=== PATIENT | female | born 1975 | race Caucasian/White ===

== ENCOUNTER 2022-05-31 21:30 | Emergency (ER) | payer OTHER, SELFPAY ==
[2022-05-31 21:40] VITALS: BP 157/83; PULSE 66; RESP 16; TEMP 36.4; O2SAT 100; BMI 23.4
--- OUTSIDE RECORDS SUMMARY | 2022-05-31 22:41 | XMS_ITS | Clinical Summary ---
:1975 Author Organization [facility] [place] [address] Care Team Providers Name Role Phone Anamaria Aguirre Primary Care Provider Allergies Active Allergy Reactions Severity Noted Date Comments Penicillins Rash 10/25/2007 Medications Medication Sig Dispensed Refills Start Date End Date Status sertraline (ZOLOFT) Take 1 Tablet (100 90 Tablet 3 03/27/2022 Active 100 mg mg) by mouth once tabletIndications: daily. Anxiety disorder, unspecified type levonorgestrel Inject 1 Device 1 Each 0 03/27/2022 Active intrauterine device intrauterine one (Mirena) 20 mcg/24 time. Placed hours (7 yrs) 52 mg 02/09/18 IUD SUMAtriptan (IMITREX) Inject 0.5 mL (6 6 Each 3 03/27/2022 Active 6 mg/0.5 mL mg) subcutaneous subcutaneous pen every 2 hours if injectorIndications: needed for Migraine without aura Migraine. Give at and without status minimum 2hrs migrainosus, not apart. Max Dose: intractable 12mg per 24hrs. SUMAtriptan (IMITREX) Take 1-2 tablets 36 Tablet 5 03/27/2022 Active 50 mg by mouth every 2 tabletIndications: hours if needed Migraine without aura for migraine. max and without status dose: 200mg per 24 migrainosus, not hours. intractable polyethylene Take 4,000 mL by 4000 mL 0 07/28/2022 2 Active glycol-electrolyte mouth one time for (GOLYTELY) 1 dose. Drink 3 236-22.74-6.74 -5.86 liters the day gram before colonoscopy suspensionIndications and 1 liter 6 : Encounter for hours before screening colonoscopy colonoscopy appointment Active Problems Problem Noted Date Hyperlipidemia 03/01/2021 Migraine without aura and without status migrainosus, not intractable 12/17/2016 Tension headache 08/08/2014 Anxiety disorder 07/05/2013 Resolved Problems Problem Noted Date Resolved Date PCOS (polycystic ovarian syndrome) 05/31/200908/08 Other acne 05/31/2009 01/14/2019 Encounters Date Type Specialty Care Team Description 04/02/2022 Ancillary Procedure 04/02/2022 Travel 03/27/2022 Office Visit Anamaria Aguirre Physica l (Annual exam no PA pap) 03/27/2022 Telephone Manny Somers Appointment MD Daniel 03/27/2022 Travel from Last 3 Months Immunizations Name Administration Dates Next Due Influenza A (H1N1), Inactivated (Age 1106/21/2009 >=3 Years) Influenza, IIV3 (Age >=3 years) 05/19/2013 Influenza, IIV4 05/21/2021, 05/27/2019, 05/07/2016, 05/17/2015 Influenza, IIV4 (=>6mos) MDV 05/22/2020, 05/27/2017 Influenza,LAIV4 Live Intranasal 05/18/2014, 05/19/2013, 04/18 (Flumist) Tdap 01/14/2019, 05/31/2009 Family History Medical History Relation Name Comments Diabetes Father Heart Disease Father aneurysm in his heart; just watching it, stable in size Hyperlipidemia Father Hypertension Father Cancer Maternal Grandmother pancreatic cancer, at 76 Diabetes Maternal Grandmother onset age 7 5 Other Maternal Grandmother sarcoidosis Hyperlipidemia Mother Hypertension Mother Other Mother fibromyalgia/per ipheral neuropathy, unknown cause/hi stoplasmosis Heart Disease Paternal Grandfather [place] () age 62 Cancer-breast No Family History Relation Name Status Comments Father Alive Maternal Grandmother Mother Alive Paternal Grandfather Social History Tobacco Use Types Packs/Day Years Used Date Never Smoker Smokeless Tobacco: Never Used Tobacco Cessation: Counseling Given: Yes Alcohol Use Standard Drinks/Week Comments Yes 0 (1 standard drink = 0.6 oz pure alcoho l) rarely Alcohol Habits Answer Date Recorded How often do you have a drink containing alcohol? 2-4 times a month 05/03/2019 How many drinks containing alcohol do you have on a 1 or 2 05/03/2019 typical day when you are drinking? How often do you have six or more drinks on one Never 05/03/2019 occasion? Comment: rarely 05/31/2009 Sex Assigned at Date Recorded Not on file Obstetrics History Last Filed Vital Signs Vital Sign Reading Time Taken Comments Blood Pressure 116/72 03/27/2022 3:46 PM CDT Pulse 73 03/27/2022 3:46 PM CDT Temperature 37.1 ??C (98.7 ??F) 03/26/2020 11:38 AM CDT Respiratory Rate 20 03/18/2021 3:37 PM CDT Oxygen Saturation 99% 03/27/2022 3:46 PM CDT Inhaled Oxygen Concentration - - Weight 68.9 kg (152 lb) 03/27/2022 3:46 PM CDT Height 169.2 cm (5' 6.61) 03/27/2022 3:46 PM CDT Body Mass Index 24.08 03/27/2022 3:46 PM CDT Plan of Treatment Upcoming Encounters Date Type Specialty Care Team Description 06/12/2022 Office Visit Justin Sullivan MD [address] [place] [address] (Wo rk) 08/08/2022 Procedure Only Manny Somers MD [address] [place] [address] (Wo rk) Health Maintenance Due Date Last Done Comments Colonoscopy through age 75 12/02/2019 COVID-19 vaccine series (4 - 09/03/2021 07/09/2021, 021, Booster for Moderna series) 09/26/2020 Influenza for age 9-49 04/17/2022 05/21/2021, 05/22/2020, 05/27/2019, Additional history exists BMI (ht and wt on same day) for 03/27/2023 03/27/2022, 02/14, age 18+ 03/26/2020, Additional history exists Depression screening for age 12+ 03/27/2023 03/27/2022, 06/2022, 03/01/2021, Additional history exists Mammogram for age 45-75 04/02/2023 04/02/2022, 03/08/2021, 02/20/2020, Additional history exists Pap test for age 21-65 02/14/2025 02/15/2020, 02/15/2020, 12/17/2016, Additional history exists Lipids for age 45-75 03/27/2027 03/27/2022, 03/01/2021, 02/15/2020, Additional history exists Tetanus booster 01/14/2029 01/14/2019, 05/31/2009 Hepatitis C screening for age Completed 01/12/2018 18-79 Tdap Completed 01/14/2019, 05/31/2009 Procedures Procedure Name Priority Date/Time Associated Diagnosis Comme nts XR MAMMO WES Routine 04/02/2022 9:17 AM Visit for screening R esults for this BILAT SCREEN CDT mammogram procedure are i n the results section. BASIC METABOLIC Routine 03/27/2022 4:28 PM Migraine without au ra Results for this PANEL CDT and without status procedure are in migrainosus, not the results intractable section. LIPID PANEL W Routine 03/27/2022 4:28 PM Hyperlipidemia, Resul ts for this REFLEX MEASURED CDT unspecified procedure ar e in LDL hyperlipidemia type the resu lts section. from Last 3 Months Results XR MAMMO WES BILAT SCREEN (04/02/2022 9:17 AM CDT) Anatomical Region Laterality Modality BREASTS, Breast Left, Breast Right Bilateral Mammo graphy Specimen (Source) Anatomical Location Collection Method / Collectio n Time Received Time / Laterality Volume Impressions 04/02/2022 2:37 PM CDT ??There is no radiographic evidence for malignancy. ??Recommend annual mammograms. MAMMOGRAM ASSESSMENT: ??ACR 1 Negative PATIENTS: You will also receive a letter with your examination results in an easy to read format. ??If you have qu estions about your results, please contact your referring provider. Narrative 04/02/2022 2:37 PM CDT For Patients: As a result of the Century Cures Act, medical imaging exams and procedure reports are released immediately into your electronic medical record. You may view this report before your referring provider. If you have questions, please contact [facility] care provider. XR MAMMO WES BILAT SCREEN [[id number]] CLINICAL HISTORY: ??This is an asymptoma tic 46 y.o. patient. INDICATION FOR EXAM: Mammogram Screening . TECHNIQUE: CC & MLO views were obtained. ??This study was evaluated with the assistance of Computer-Aided Detecti on. Breast Tomosynthesis was used in interpretation. COMPARISON FILM: Yes 03/08/21 [facility] 02/20/20 [facility] FINDINGS: ??The breasts are heterogeneou sly dense, which may obscure small masses. There are no dominant masses, valverde spicious micro calcifications or areas of architectural distortion. Anamaria CHAMBERS MAMMO (ABNORMAL) LIPID PANEL W REFLEX MEASURED LDL (03/27/2022 4:28 PM CDT) [facility] Method Time Signature CHOLESTEROL,TOTAL 276 (H) 100 - 199 03/28/2022 [facility] mg/dL 3:59 PM CDT LABORATORY-[facility]I TRAL LABORATORY TRIGLYCERIDES 289 (H) <150 03/28/2022 [facility] mg/dL 3:59 PM CDT LABORATORY-[facility] TRAL LABORATORY HDL CHOLESTEROL 59 >40 mg/dL 03/28/2022 [facility] 3:59 PM CDT LABORATORY-[facility] TRAL LABORATORY NON-HDL 217 (H) <145 03/28/2022 [facility] CHOLESTEROL mg/dl 3:59 PM CDT LABORATORY-[facility] TRAL LABORATORY CHOL/HDL RATIO 4.68 (H) <4.50 03/28/2022 [facility] 3:59 PM CDT LABORATORY-[facility] TRAL LABORATORY LDL CHOLESTEROL 159 (H) <=130 03/28/2022 [facility] mg/dL 3:59 PM CDT LABORATORY-[facility] TRAL LABORATORY VLDL CHOLESTEROL 58 (H) <=30 03/28/2022 [facility] mg/dL 3:59 PM CDT LABORATORY-[facility] TRAL LABORATORY PROVIDER ORDERED RANDOM 03/28/2022 [facility] STATUS 3:59 PM CDT LABORATORY-P[facility]AVI TRAL LABORATORY Specimen Anatomical Collection Method / Collection Time Recei evert Time (Source) Location / Volume Laterality Blood BLOOD SPECIMEN / Venipuncture / 03/27/2022 4:28 2021 4:30 Unknown Unknown PM CDT PM CDT Anamaria CHAMBERS CHEMISTRY Performing Organization Address City/State/ZIP Code Phon e Number [facility] [address] [place] [address] LABORATORY-CENTRAL 2000 LABORATORY BASIC METABOLIC PANEL (03/27/2022 4:28 PM CDT) P athologist Signature SODIUM 139 135 - 145 03/28/2022 [facility] mmol/L 3:57 PM CDT LABORATORY-CENT [facility] LABORATORY POTASSIUM 4.1 3.5 - 5.0 03/28/2022 [facility] mmol/L 3:57 PM CDT LABORATORY-CENT RAL LABORATORY CHLORIDE 103 98 - 110 03/28/2022 [facility] mmol/L 3:57 PM CDT LABORATORY-CENT [facility] LABORATORY CO2,TOTAL 24 21 - 31 03/28/2022 [facility] mmol/L 3:57 PM CDT LABORATORY-CENT RAL LABORATORY ANION GAP 12 5 - 18 03/28/2022 [facility] 3:57 PM CDT LAB[facility]AT[facility]-CENT RAL LABORATORY GLUCOSE 88 65 - 100 03/28/2022 [facility] mg/dL 3:57 PM CDT LABORATORY-CENT RAL LABORATORY CALCIUM 9.7 8.5 - 10.5 03/28/2022 [facility] mg/dL 3:57 PM CDT LABORATORY-CENT RAL LABORATORY BUN 8 8 - 25 03/28/2022 [facility] mg/dL 3:57 PM CDT LABORATORY-CENT [facility] LABORATORY CREATININE 0.71 0.57 - 03/28/2022 [facility] 1.11 mg/dL 3:57 PM CDT LABORATORY-CENT RAL LABORATORY BUN/CREAT RATIO 11 10 - 20 03/28/2022 [facility] 3:57 PM CDT LAB[facility]ATORY-CENT [facility] LABORATORY eGFR >90 >90 03/28/2022 [facility] mL/min/1.7 3:57 PM CDT LABORATORY-CENT 3m2 RAL LABORATORY Comment: As of 2021, eGFR is calcu lated by the CKD-EPI creatinine equation without race adjustment. eGFR can be inf luenced by muscle mass, exercise, and diet. The reported eGFR is an estimation only and is only applicable if the renal function is stable. Specimen Anatomical Collection Method / Collection Time Recei evert Time (Source) Location / Volume Laterality Blood BLOOD SPECIMEN / Venipuncture / 03/27/2022 4:28 2021 4:30 Unknown Unknown PM CDT PM CDT Anamaria CHAMBERS CHEMISTRY Performing Organization Address City/State/ZIP Code Phon e Number [facility] [address] [place] [address] LABORATORY-CENTRAL 2000 LABORATORY from Last 3 Months Insurance Payer Benefit Plan / Subscriber ID Effective Dates Phone Addre ss Type Group MEDICA MEDICA CHOICE [id number] 2019-Present [address] [address] [place] [address] Care Teams Frame Aligner Relationship Specialty Start Date End Date Anamaria Aguirre PA PCP - General Family Practice 07/05/13 [address] [place], [place] [phone]
--- OUTSIDE RECORDS SUMMARY | 2022-05-31 22:41 | XMS_ITS | Encounter Summary ---
:1975 Author Organization [facility] Address [address] [place] [address] Care Team Providers Name Role Phone Unavailable Primary Care Provider Unavailable Encounter Details Date Type Department Care Team Description 04/11/2005 Results [facility] Ori Cowart MD Hospital Results OBGYN SPECIALIS TS [address] [place], [place] [phone] (Wo rk) Social History Tobacco Use Types Packs/Day Years Used Date Smoking Tobacco: Never Assessed Sex Assigned at Date Recorded Female 10/26/2019 10:01 AM CDT documented as of this encounter Plan of Treatment Not on filedocumented as of this encounter Procedures Procedure Name Priority Date/Time Associated Comments Diagnosis HC HYSTEROSALPINGOGRAM Routine 04/11/2005 12:41 R esults for this PM CDT procedure are i n the results section. documented in this encounter Results X-RAY HYSTEROSALPINGOGRAM (04/11/2005 12:41 PM CDT) Anatomical Region Laterality Modality Other Specimen (Source) Anatomical Collection Method Collection Time Re ceived Time Location / / Volume Laterality 04/11/2005 12:41 PM CDT Impressions 04/11/2005 1:33 PM CDT HYSTEROSALPINGOGRAM - 04/11/2005 ?? HISTORY: Infertility workup. ? FINDINGS: Fluoroscopic assistance was pr ovided to Dr. Moon for the hysterosalpingogram. The CATTLE FARMER cannulat ed the patient's cervix and follow up films are made after injection of water-soluble contrast into the uterine cavity. The endometrial cavity appears normal in contour without evidence of filling defe cts with the exception of a single small air bubble within the lower uterine segment. The fallopian tubes bilaterally appear lissa l and there is free spillage from the tubes bilaterally confirming pa tency. A total of 0.3 minutes fluorotime was utilized for this examina tion. ?? IMPRESSION: ?? No evidence for tubal obstruction. Lissa l appearing uterine cavity. Jannette Moon MD SPECIAL IMAGING STUDIES documented in this encounter Visit Diagnoses Not on filedocumented in this encounter
--- OUTSIDE RECORDS SUMMARY | 2022-05-31 22:41 | XMS_ITS | Encounter Summary ---
:1975 Author Organization [facility] Address [address] [place] [address] Care Team Providers Name Role Phone Unavailable Primary Care Provider Unavailable Encounter Details Date Type Department Care Team Description 04/22/2007 Admission H&P Kimberley Powell MD (Chemist Pharmaceutical) MOBILE ARCHITECT SPECIALIS TS [address] [facility] [address] [place], [place] [phone] (Wo rk) Social History Tobacco Use Types Packs/Day Years Used Date Smoking Tobacco: Never Assessed Sex Assigned at Date Recorded Female 10/26/2019 10:01 AM CDT documented as of this encounter Progress Notes Kimberley Powell - 05/07/2007 9:29 AM CDT FINAL HISTORY: 31-year-old female, 3, para 2 who has been found to have a missed AB on an ultrasound. She is being brought in for suction D&C. PAST OBSTETRICAL HISTORY: x2. PAST SURGICAL HISTORY: None. PAST MEDICAL HISTORY: Negative. ALLERGIES: Penicillin. REVIEW OF SYSTEMS: Negative. PHYSICAL EXAMINATION: VITAL SIGNS: Stable. NECK: Supple, no masses. BACK: Normal spinal curvature, no CVA tenderness. HEART: S1, S2, no S3, S4, no murmur, regular rhythm. CHEST: Clear to auscultation. ABDOMEN: Soft, nontender, no hepatosplenomegaly. PELVIC: Exam deferred to surgery. IMPRESSION: First trimester intrauterine demise. PLAN: Suction D&C. Risks and complications discussed. The patient will receive RhoGAM in the hospital. Electronically signed on 05/07/2007 09:27 by KIMBERLEY POWELL MD MT: [id number] Name: AARON MCDONALD Account: [id number] : 1975 Admitted: [id number] Document: [id number] documented in this encounter Plan of Treatment Not on filedocumented as of this encounter Visit Diagnoses Not on filedocumented in this encounter
--- OUTSIDE RECORDS SUMMARY | 2022-05-31 22:41 | XMS_ITS | Encounter Summary ---
:1975 Author Organization [place] Address [address] [place] [address] Care Team Providers Name Role Phone Unavailable Primary Care Provider Unavailable Encounter Details Date Type Department Care Team Description 04/26/2007 Operative Report Kimberley Powell MD (Blasting Gang Miner) KERSEY DEPARTMENT SUPERVISOR SPECIALIS TS [address] [facility] [address] [place], [place] [address] (Wo rk) Social History Tobacco Use Types Packs/Day Years Used Date Smoking Tobacco: Never Assessed Sex Assigned at Date Recorded Female 10/26/2019 10:01 AM CDT documented as of this encounter Progress Notes Kimberley Powell - 05/07/2007 9:31 AM CDT FINAL PREOPERATIVE DIAGNOSIS: Missed . POSTOPERATIVE DIAGNOSIS: Missed . PROCEDURE: Suction dilatation and curettage. DESCRIPTION OF PROCEDURE: The patient was placed under satisfactory general anesthesia and prepped and draped in the dorsal lithotomy position. Examination demonstrated an 8 week size anterior uterus with no adnexal masses palpated. The bladder was emptied of urine and a tenaculum was placed on the cervix. The uterus was sounded to 10 cm. The cervix was then easily progressively dilated to 9 mm. Thesuction curette was inserted into the uterine cavity and a substantial amount of blood clot and placental type tissue was withdrawn from the uterine cavity on several passes. Light gentle sharp curettage was also performed to assure that the uterus was empty. The uterus clamped down nicely. Tenaculum was removed, hemostasis obtained. She tolerated the procedure well, left Operating Room in good condition. Blood loss was less than 10 cc. Electronically signed on 05/07/2007 09:30 by KIMBERLEY POWELL MD MT: [id number] Name: AARON MCDONALD MRN: [id number] Account: [id number] : 1975 Procedure Date: 04/26/2007 Document: [id number] documented in this encounter Plan of Treatment Not on filedocumented as of this encounter Visit Diagnoses Not on filedocumented in this encounter
--- OUTSIDE RECORDS SUMMARY | 2022-05-31 22:41 | XMS_ITS | Encounter Summary ---
:1975 Author Organization [facility] Address [address] [place] [address] Care Team Providers Name Role Phone Unavailable Primary Care Provider Unavailable Encounter Details Date Type Department Care Team Description 05/10/2006 Historic Results INTERFACED REPORT Steven Fermin M D DIETITIAN CONSULTANT S [address] [facility] [address] [place], [place] [address] (Wo rk) Social History Tobacco Use Types Packs/Day Years Used Date Smoking Tobacco: Never Assessed Sex Assigned at Date Recorded Female 10/26/2019 10:01 AM CDT documented as of this encounter Plan of Treatment Not on filedocumented as of this encounter Procedures Procedure Name Priority Date/Time Associated Diagnosis Comme nts RH NEGATIVE IMMUNE Routine 05/10/2006 8:45 AM Res ults for this GLOBULIN STUDY CDT procedure are in the results section. RHOGAM ORDER Routine 05/10/2006 6:32 AM Results f or this CDT procedure are i n the results section. documented in this encounter Results Rh negative immune globulin study (05/10/2006 8:45 AM CDT) [facility] 360Guanxi Method Time Signature Blood Bank Not MISYS Comment suitable, baby Rh negative Specimen Anatomical Collection Method Collection Time Receive d Time (Source) Location / / Volume Laterality 05/10/2006 8:45 AM 6 9:03 CDT AM CDT Steven Fermin MD LAB - BLOOD BANK PRODUCT ORD ER Performing Organization Address City/State/ZIP Code Phon e Number [facility] Rhogam Order (05/10/2006 6:32 AM CDT) [facility] gist Method Time Signature Rhogam Order Order MISYS received Comment: See Rhogam Study/Suitability Specimen Anatomical Collection Method Collection Time Receive d Time (Source) Location / / Volume Laterality 05/10/2006 6:32 AM 6:32 CDT AM CDT Steven Fermin MD LAB - BLOOD BANK PRODUCT ORD ER Performing Organization Address City/State/ZIP Code Phon e Number [facility] documented in this encounter Visit Diagnoses Not on filedocumented in this encounter
--- OUTSIDE RECORDS SUMMARY | 2022-05-31 22:41 | XMS_ITS | Encounter Summary ---
:1975 Author Organization [facility] Address [address] [place] [address] Care Team Providers Name Role Phone System, Provider Not In Primary Care Provider Unavailable Xenia Rae APRN N[employer]SE SCHOOL Unavailable Reason for Visit Reason Comments Medication Refill Encounter Details Date Type Department Care Team Description 12/02/2020 Refill M [facility] Neurology Xenia Rae Medication Refill [address] [facility] STEVEN Cummings [employer] [address] [place] [phone] [id number] [phone] [place] [address] (Wo rk) Social History Tobacco Use Types Packs/Day Years Used Date Smoking Tobacco: Never Assessed Sex Assigned at Date Recorded Female 10/26/2019 10:01 AM CDT documented as of this encounter Miscellaneous Notes Telephone Encounter - Lilly Ventura CMA - 12/03/2020 8:03 AM CDT Rx Authorization: ??? Requested Medication/ Dose SUMAtriptan (IMITREX) 100 MG tablet ??? Date last refill ordered: 10/26/19 ??? Quantity ordered: 12 Tablets ??? # refills: 6 ??? Date of last clinic visit with ordering provider: 12/13/19 ??? Date of next clinic visit with ordering provider: ??? All pertinent protocol data (lab date/result): ??? Include pertinent information from patients message: documented in this encounter Plan of Treatment Not on filedocumented as of this encounter Visit Diagnoses Diagnosis Intractable migraine without aura and wi thout status migrainosus Migraine without aura, with intractable migraine, so stated, without mention of status migrainosus documented in this encounter Care Teams Container Packer Operator Relationship Specialty Start Date End Date System, Provider Not In PCP - General Clinic 09/12/19 Xenia Rae Nurse Practitioner Nurse Practitioner 09/12/19 STEVEN Cummings [address] [id number] [place] [address] documented as of this encounter
--- OUTSIDE RECORDS SUMMARY | 2022-05-31 22:41 | XMS_ITS | Encounter Summary ---
:1975 Author Organization [facility] Address [address] [place] [address] Care Team Providers Name Role Phone Unavailable Primary Care Provider Unavailable Encounter Details Date Type Department Care Team Description 04/12/2005 Operative Report Bacilio Callahan MD (Fruit Dryer) NETWORK ENGINEER ADMINISTRATOR S [address] [facility] [address] [place], [place] [phone] (Wo rk) Social History Tobacco Use Types Packs/Day Years Used Date Smoking Tobacco: Never Assessed Sex Assigned at Date Recorded Female 10/26/2019 10:01 AM CDT documented as of this encounter Progress Notes Bacilio Callahan - 04/12/2005 11:59 PM CDT : 73 1st ASS'T: 2nd ASS'T: PRE-OPERATIVE DIAGNOSIS: Secondary infertility. POST-OPERATIVE DIAGNOSIS: Secondary infertility. OPERATION: Hysterosalpingogram. COMPLICATIONS: None. PROCEDURE: Aaron Mcdonald states that she just got over her menses and has not had intercourse since then. She was given the risks and benefits and had been taking the prophylactic antibiotics. A speculum was placed in the vagina. The cervix was cleansed with Betadine solution. The anterior lip of the cervix was grasped with tenaculum. The uterine cannula was placed into the cervical canal. Conray, approximately 5 ml, was injected. Fluoroscopy was performed at the same time by the radiologist. Normal uterine cavity was noted with bilateral fill and spill of the tubes. She tolerated the procedure, was given precautions, and will return next week for follicular ultrasound and intrauterine examination procedure. [id number] BACILIO CALLAHAN MD MT: Document: [id number] [place], [place] Name: MR#: AARON MCDONALD [id number] OPERATIVE REPORT Page 2 of 1 LCN: DARIO DSC: 04/11/2005 [place], [place] Name: MR#: AARON MCDONALD -[id number] : Procedure Date: Account #: 1975 [id number] Doctor: BACILIO CALLAHAN MD OPERATIVE REPORT Page 1 of 1 documented in this encounter Plan of Treatment Not on filedocumented as of this encounter Visit Diagnoses Not on filedocumented in this encounter
--- OUTSIDE RECORDS SUMMARY | 2022-05-31 22:41 | XMS_ITS | Encounter Summary ---
:1975 Author Organization [facility] Address [address] [place] [id number] Care Team Providers Name Role Phone System, Provider Not In Primary Care Provider Unavailable Xenia Rae APRN SPLITTER HAND Unavailable Reason for Visit Reason Onset Date Comments *-*INCOMING RECORDS*-* 09/14/2019 Appointment 2019 Encounter Details Date Type Department Care Team Description 09/14/2019 PRE VISIT [facility] Eileen Ford *-*INCOMING RECORDS*-* [facility] Shabana Parnell MD (Appointment 3rd Floor [address] [facility] 10/26/2019) [place] [phone] (Wo rk) Social History Tobacco Use Types Packs/Day Years Used Date Smoking Tobacco: Never Assessed Sex Assigned at Date Recorded Female 10/26/2019 10:01 AM CDT documented as of this encounter Miscellaneous Notes Telephone Encounter - El Diaz MA - 09/14/2019 7:40 AM CST FUTURE VISIT INFORMATION FUTURE VISIT INFORMATION: ?? Date: 10/26/2019 ?? Time: 1230pm ?? [place] [facility] [place]: ?? Referring provider: Self ?? Referring providers clinic: ?? Reason for visit/diagnosis Headaches RECORDS REQUESTED FROM: Clinic name Comments Records Status Imaging Status [facility] Various dates Care EVerywhere N/A ONER documented in this encounter Plan of Treatment Not on filedocumented as of this encounter Visit Diagnoses Not on filedocumented in this encounter Care Teams [employer] Relationship Specialty Start Date End Date System, Provider Not In PCP - General Clinic 09/12/19 Xenia Rae Nurse Practitioner Nurse Practitioner 09/12/19 STEVEN Cummings SPLITTER HAND [address] [facility] [id number] [place] [address] documented as of this encounter
--- OUTSIDE RECORDS SUMMARY | 2022-05-31 22:41 | XMS_ITS | Encounter Summary ---
:1975 Author Organization [facility] Address [address] [place] [id number] Care Team Providers Name Role Phone System, Provider Not In Primary Care Provider Unavailable Xenia Rae APRN PAEDODONTIST Unavailable Encounter Details Date Type Department Care Team Description 10/26/2019 Travel Social History Tobacco Use Types Packs/Day Years Used Date Smoking Tobacco: Never Assessed Sex Assigned at Date Recorded Female 10/26/2019 10:01 AM CDT documented as of this encounter Plan of Treatment Not on filedocumented as of this encounter Visit Diagnoses Not on filedocumented in this encounter Care Teams Public Relations Senior Associate Relationship Specialty Start Date End Date System, Provider Not In PCP - General Clinic 09/12/19 Xenia Rae Nurse Practitioner Nurse Practitioner 09/12/19 STEVEN Cummings PAEDODONTIST [address] [facility] [id number] [place] [address] documented as of this encounter
--- OUTSIDE RECORDS SUMMARY | 2022-05-31 22:41 | XMS_ITS | Encounter Summary ---
:1975 Author Organization [facility] Address [address] [place] [id number] Care Team Providers Name Role Phone System, Provider Not In Primary Care Provider Unavailable Xenia Rae APRN MANAGER TEST Unavailable Reason for Visit Reason Comments Consult For UMP NEW HEADACHE Encounter Details Date Type Department Care Team Description 10/26/2019 Office Visit [facility] Neurology Xenia Rae Intractable migraine [address] [facility] [address] [place], without aura and 3rd Floor SOCIAL SERVICE COORDINATOR MANAGER TEST without status [place], [place] [address] migraino june (Primary [id number] Dx) [phone] [place] [address] Social History Tobacco Use Types Packs/Day Years Used Date Smoking Tobacco: Never Assessed Sex Assigned at Date Recorded Female 10/26/2019 10:01 AM CDT documented as of this encounter Last Filed Vital Signs Vital Sign Reading Time Taken Comments Blood Pressure 124/78 10/26/2019 12:17 PM CDT Pulse 64 10/26/2019 12:17 PM CDT Temperature - - Respiratory Rate 16 10/26/2019 12:17 PM CDT Oxygen Saturation 100% 10/26/2019 12:17 PM CDT Inhaled Oxygen Concentration - - Weight 67.1 kg (148 lb) 10/26/2019 12:17 PM CDT Height - - Body Mass Index - - documented in this encounter Patient Instructions Patient InstructionsXenia Rae, STEVEN MANAGER TEST - 10/26/2019 12:30 PM CDT Images from the original note were not included. Plan: Headache log for frequency and severity and acute medications use Stay hydrated Acute migraine headache treatment -either try sumatriptan 100 mg at headache onset and may repeat in2 hours as needed. Max 200 mg in 24 hours. May take sumatriptan alone or with naproxen. Naproxen 2 tablets (440 mg) every 12 hours as needed and tolerated. May try sumatriptan nasal as needed and may work faster than sumatriptan oral. Sumatriptan nasal spray maximum two doses in 24 hours. If you use sumatriptan nasal and oral at the same day than use 50% less of the recommended oral sumatriptan (max 100 mg in 24 hours vs 200 mg in 24 hours). May try prochlorperazine as needed for nausea and vomiting-may cause feeling of anxiety and drowsiness. We could try ondansetron for nausea as needed -could be taken at work or home due to low drowsiness effect. Headache migraine prevention-a trial of topiramate 25 mg at bedtime for one week, then 50 mg at bedtime Migraine headache prevention-a trial of topiramate 25 mg at bedtime for one week, then 50 mg at bedtime for one week. Side effects- stay hydrated and drink at least 10+glasses of water to decrease risk of kidney stones, may cause tingling in the hands and feet, taste changes, glaucoma, nausea, weight stable or loss, mood changes. Vitamin B2 (riboflvin) 200 mg daily OTC Follow up in 6-8 weeks or sooner if needed Patient Education Ondansetron oral dissolving tablet Brand Name: Julio CONRAD What is this medicine? ONDANSETRON (on SARAH se brenda) is used to treat nausea and vomiting caused by chemotherapy. It is alsoused to prevent or treat nausea and vomiting after surgery. How should I use this medicine? These tablets are made to dissolve in the mouth. Do not try to push the tablet through the foil backing. With dry hands, peel away the foil backing and gently remove the tablet. Place the tablet in themouth and allow it to dissolve, then swallow. While you may take these tablets with water, it is notnecessary to do so. Talk to your ultrasound supervisor regarding the use of this medicine in children. Special care may be needed. What side effects may I notice from receiving this medicine? Side effects that you should report to your doctor or health rn patient care as soon as possible: ?? allergic reactions like skin rash, itching or hives, swelling of the face, lips, or tongue ?? breathing problems ?? confusion ?? dizziness ?? fast or irregular heartbeat ?? feeling faint or lightheaded, falls ?? fever and chills ?? loss of balance or coordination ?? seizures ?? sweating ?? swelling of the hands and feet ?? tightness in the chest ?? tremors ?? unusually weak or tired Side effects that usually do not require medical attention (report to your doctor or health rn patient care if they continue or are bothersome): ?? constipation or diarrhea ?? headache What may interact with this medicine? Do not take this medicine with any of the following medications: ?? apomorphine ?? certain medicines for fungal infections like fluconazole, itraconazole, ketoconazole, posaconazole, voriconazole ?? cisapride ?? dofetilide ?? dronedarone ?? pimozide ?? thioridazine ?? ziprasidone This medicine may also interact with the following medications: ?? carbamazepine ?? certain medicines for depression, anxiety, or psychotic disturbances ?? fentanyl ?? linezolid ?? MAOIs like Carbex, Eldepryl, Marplan, Nardil, and Parnate ?? methylene blue (injected into a vein) ?? other medicines that prolong the QT interval (cause an abnormal heart rhythm) ?? phenytoin ?? rifampicin ?? tramadol What if I miss a dose? If you miss a dose, take it as soon as you can. If it is almost time for your next dose, take only that dose. Do not take double or extra doses. Where should I keep my medicine? Keep out of the reach of children. Store between 2 and 30 degrees C (36 and 86 degrees F). Throw away any unused medicine after the expiration date. What should I tell my health care provider before I take this medicine? They need to know if you have any of these conditions: ?? heart disease ?? history of irregular heartbeat ?? liver disease ?? low levels of magnesium or potassium in the blood ?? an unusual or allergic reaction to ondansetron, granisetron, other medicines, foods, dyes, or preservatives ?? or trying to get ?? breast-feeding What should I watch for while using this medicine? Check with your doctor or health rn patient care as soon as you can if you have any sign of an allergic reaction. NOTE:This sheet is a summary. It may not cover all possible information. If you have questions aboutthis medicine, talk to your doctor, pharmacist, or health care provider. Copyright?? 2019 [employer] Patient Education Patient Education ?? Sumatriptan Nasal spray, solution ?? Sumatriptan Succinate Oral tablet ?? Sumatriptan Succinate Solution for injection ?? Sumatriptan Transdermal patch - iontophorectic Sumatriptan Nasal spray, solution What is this medicine? SUMATRIPTAN (albino ma TRIP bosch) is used to treat migraines with or without aura. An aura is a strange feeling or visual disturbance that warns you of an attack. It is not used to prevent migraines. This medicine may be used for other purposes; ask your health care provider or pharmacist if you have questions. What should I tell my health care provider before I take this medicine? They need to know if you have any of these conditions: ?? bowel disease or colitis ?? diabetes ?? family history of heart disease ?? fast or irregular heart beat ?? heart or blood vessel disease, angina (chest pain), or previous heart attack ?? high blood pressure ?? high cholesterol ?? history of stroke, transient ischemic attacks (TIAs or mini-strokes), or intracranial bleeding ?? kidney or liver disease ?? overweight ?? poor circulation ?? postmenopausal or surgical removal of uterus and ovaries ?? Raynaud's disease ?? seizure disorder ?? an unusual or allergic reaction to sumatriptan, other medicines, foods, dyes, or preservatives ?? or trying to get ?? breast-feeding How should I use this medicine? This medicine is for use in the nose. Follow the directions on the prescription label. This medicineis taken at the first symptoms of a migraine. It is not for everyday use. Do not take your medicine more often than directed. Talk to your ultrasound supervisor regarding the use of this medicine in children. Special care may be needed. Overdosage: If you think you have taken too much of this medicine contact a poison control center [facility] at once. NOTE: This medicine is only for you. Do not share this medicine with others. What if I miss a dose? This does not apply; this medicine is not for regular use. What may interact with this medicine? Do not take this medicine with any of the following medicines: ?? amphetamine or cocaine ?? dihydroergotamine, ergotamine, ergoloid mesylates, methysergide, or ergot- type medication - do not take within 24 hours of taking sumatriptan. ?? feverfew ?? MAOIs like Carbex, Eldepryl, Marplan, Nardil, and Parnate - do not take sumatriptan within 2 weeks of stopping MAOI therapy. ?? other migraine medicines like almotriptan, eletriptan, naratriptan, rizatriptan, zolmitriptan - do not take within 24 hours of taking sumatriptan. ?? tryptophan This medicine may also interact with the following medications: ?? lithium ?? medicines for mental depression, anxiety or mood problems ?? medicines for weight loss such as dexfenfluramine, dextroamphetamine, fenfluramine, or sibutramine ?? Horse Pasture's wort This list may not describe all possible interactions. Give your health care provider a list of all the medicines, herbs, non-prescription drugs, or dietary supplements you use. Also tell them if you smoke, drink alcohol, or use illegal drugs. Some items may interact with your medicine. What should I watch for while using this medicine? Only take this medicine for a migraine headache. Take it if you get warning symptoms or at the startof a migraine attack. It is not for regular use to prevent migraine attacks. You may get drowsy or dizzy. Do not drive, use machinery, or do anything that needs mental alertnessuntil you know how this medicine affects you. To reduce dizzy or fainting spells, do not sit or stand up quickly, especially if you are an older patient. Alcohol can increase drowsiness, dizziness and flushing. Avoid alcoholic drinks. Smoking cigarettes may increase the risk of heart-related side effects from using this medicine. If you take migraine medicines for 10 or more days a month, your migraines may get worse. Keep a diary of headache days and medicine use. Contact your healthcare professional if your migraine attacks occur more frequently. What side effects may I notice from receiving this medicine? Side effects that you should report to your doctor or health rn patient care as soon as possible: ?? allergic reactions like skin rash, itching or hives, swelling of the face, lips, or tongue ?? fast, slow, or irregular heart beat ?? hallucinations ?? increased or decreased blood pressure ?? seizures ?? severe stomach pain and cramping, bloody diarrhea ?? signs and symptoms of a blood clot such as breathing problems; changes in vision; chest pain; severe, sudden headache; pain, swelling, warmth in the leg; trouble speaking; sudden numbness or weakness of the face, arm or leg ?? tingling, pain, or numbness in the face, hands or feet Side effects that usually do not require medical attention (report to your doctor or health rn patient care if they continue or are bothersome): ?? bad taste ?? drowsiness ?? feeling warm, flushing, or redness of the face ?? headache ?? muscle cramps, pain ?? nausea, vomiting ?? unusually weak or tired This list may not describe all possible side effects. Call your doctor for medical advice about sideeffects. You may report side effects to FDA at 7-261-JRR-4627. Where should I keep my medicine? Keep out of the reach of children. Store at room temperature between 2 and 30 degrees C (36 and 86 degrees F). Throw away any unused medicine after the expiration date. NOTE:This sheet is a summary. It may not cover all possible information. If you have questions aboutthis medicine, talk to your doctor, pharmacist, or health care provider. Copyright?? 2016 [employer] Patient Education Patient Education ?? Prochlorperazine Edisylate Solution for injection ?? Prochlorperazine Maleate Oral tablet ?? Prochlorperazine Rectal suppository Prochlorperazine Maleate Oral tablet What is this medicine? PROCHLORPERAZINE (proe klor PER a kelvin) helps to control severe nausea and vomiting. This medicine is also used to treat schizophrenia. It can also help patients who experience anxiety that is not due to psychological illness. This medicine may be used for other purposes; ask your health care provider or pharmacist if you have questions. What should I tell my health care provider before I take this medicine? They need to know if you have any of these conditions: ?? blood disorders or disease ?? dementia ?? liver disease or jaundice ?? Parkinson's disease ?? uncontrollable movement disorder ?? an unusual or allergic reaction to prochlorperazine, other medicines, foods, dyes, or preservatives ?? or trying to get ?? breast-feeding How should I use this medicine? Take this medicine by mouth with a glass of water. Follow the directions on the prescription label. Take your doses at regular intervals. Do not take your medicine more often than directed. Do not stoptaking this medicine suddenly. This can cause nausea, vomiting, and dizziness. Ask your doctor or health rn patient care for advice. Talk to your ultrasound supervisor regarding the use of this medicine in children. Special care may be needed. While this drug may be prescribed for children as young as 2 years for selected conditions, precautions do apply. Overdosage: If you think you have taken too much of this medicine contact a poison control center [facility] at once. NOTE: This medicine is only for you. Do not share this medicine with others. What if I miss a dose? If you miss a dose, take it as soon as you can. If it is almost time for your next dose, take only that dose. Do not take double or extra doses. What may interact with this medicine? Do not take this medicine with any of the following medications: ?? amoxapine ?? antidepressants like citalopram, escitalopram, fluoxetine, paroxetine, and sertraline ?? deferoxamine ?? dofetilide ?? maprotiline ?? tricyclic antidepressants like amitriptyline, clomipramine, imipramine, nortiptyline and others This medicine may also interact with the following medications: ?? lithium ?? medicines for pain ?? phenytoin ?? propranolol ?? warfarin This list may not describe all possible interactions. Give your health care provider a list of all the medicines, herbs, non-prescription drugs, or dietary supplements you use. Also tell them if you smoke, drink alcohol, or use illegal drugs. Some items may interact with your medicine. What should I watch for while using this medicine? Visit your doctor or health rn patient care for regular checks on your progress. You may get drowsy or dizzy. Do not drive, use machinery, or do anything that needs mental alertnessuntil you know how this medicine affects you. Do not stand or sit up quickly, especially if you are an older patient. This reduces the risk of dizzy or fainting spells. Alcohol may interfere with the effect of this medicine. Avoid alcoholic drinks. This medicine can reduce the response of your body to heat or cold. Dress machine cage maker cold weather and stay hydrated in hot weather. If possible, avoid extreme temperatures like saunas, hot tubs, very hot or cold showers, or activities that can cause dehydration such as vigorous exercise. This medicine can make you more sensitive to the sun. Keep out of the sun. If you cannot avoid beingin the sun, wear protective clothing and use sunscreen. Do not use sun lamps or tanning beds/booths. Your mouth may get dry. Chewing sugarless gum or sucking hard candy, and drinking plenty of water may help. Contact your doctor if the problem does not go away or is severe. What side effects may I notice from receiving this medicine? Side effects that you should report to your doctor or health rn patient care as soon as possible: ?? blurred vision ?? breast enlargement in men or women ?? breast milk in women who are not breast-feeding ?? chest pain, fast or irregular heartbeat ?? confusion, restlessness ?? dark yellow or brown urine ?? difficulty breathing or swallowing ?? dizziness or fainting spells ?? drooling, shaking, movement difficulty (shuffling walk) or rigidity ?? fever, chills, sore throat ?? involuntary or uncontrollable movements of the eyes, mouth, head, arms, and legs ?? seizures ?? stomach area pain ?? unusually weak or tired ?? unusual bleeding or bruising ?? yellowing of skin or eyes Side effects that usually do not require medical attention (report to your doctor or health rn patient care if they continue or are bothersome): ?? difficulty passing urine ?? difficulty sleeping ?? headache ?? sexual dysfunction ?? skin rash, or itching This list may not describe all possible side effects. Call your doctor for medical advice about sideeffects. You may report side effects to FDA at 1-495-XLC-2594. Where should I keep my medicine? Keep out of the reach of children. Store at room temperature between 15 and 30 degrees C (59 and 86 degrees F). Protect from light. Throw away any unused medicine after the expiration date. NOTE:This sheet is a summary. It may not cover all possible information. If you have questions aboutthis medicine, talk to your doctor, pharmacist, or health care provider. Copyright?? 2016 [employer] Patient Education Topiramate tablets Brand Names: Topamax, Topiragen What is this medicine? TOPIRAMATE (toe PYRE a mate) is used to treat seizures in adults or children with epilepsy. It is also used for the prevention of migraine headaches. How should I use this medicine? Take this medicine by mouth with a glass of water. Follow the directions on the prescription label. Do not crush or chew. You may take this medicine with meals. Take your medicine at regular intervals.Do not take it more often than directed. Talk to your ultrasound supervisor regarding the use of this medicine in children. Special care may be needed. While this drug may be prescribed for children as young as 2 years of age for selected conditions, precautions do apply. What side effects may I notice from receiving this medicine? Side effects that you should report to your doctor or health rn patient care as soon as possible: ?? allergic reactions like skin rash, itching or hives, swelling of the face, lips, or tongue ?? decreased sweating and/or rise in body temperature ?? depression ?? difficulty breathing, fast or irregular breathing patterns ?? difficulty speaking ?? difficulty walking or controlling muscle movements ?? hearing impairment ?? redness, blistering, peeling or loosening of the skin, including inside the mouth ?? tingling, pain or numbness in the hands or feet ?? unusual bleeding or bruising ?? unusually weak or tired ?? worsening of mood, thoughts or actions of suicide or dying Side effects that usually do not require medical attention (report to your doctor or health rn patient care if they continue or are bothersome): ?? altered taste ?? back pain, joint or muscle aches and pains ?? diarrhea, or constipation ?? headache ?? loss of appetite ?? nausea ?? stomach upset, indigestion ?? tremors What may interact with this medicine? Do not take this medicine with any of the following medications: ?? probenecid This medicine may also interact with the following medications: ?? acetazolamide ?? alcohol ?? amitriptyline ?? aspirin and aspirin-like medicines ?? control pills ?? certain medicines for depression ?? certain medicines for seizures ?? certain medicines that treat or prevent blood clots like warfarin, enoxaparin, dalteparin, apixaban, dabigatran, and rivaroxaban ?? digoxin ?? hydrochlorothiazide ?? lithium ?? medicines for pain, sleep, or muscle relaxation ?? metformin ?? methazolamide ?? NSAIDS, medicines for pain and inflammation, like ibuprofen or naproxen ?? pioglitazone ?? risperidone What if I miss a dose? If you miss a dose, take it as soon as you can. If your next dose is to be taken in less than 6 hours, then do not take the missed dose. Take the next dose at your regular time. Do not take double or extra doses. Where should I keep my medicine? Keep out of the reach of children. Store at room temperature between 15 and 30 degrees C (59 and 86 degrees F) in a tightly closed container. Protect from moisture. Throw away any unused medicine after the expiration date. What should I tell my health care provider before I take this medicine? They need to know if you have any of these conditions: ?? bleeding disorders ?? cirrhosis of the liver or liver disease ?? diarrhea ?? glaucoma ?? kidney stones or kidney disease ?? low blood counts, like low white cell, platelet, or red cell counts ?? lung disease like asthma, obstructive pulmonary disease, emphysema ?? metabolic acidosis ?? on a ketogenic diet ?? schedule for surgery or a procedure ?? suicidal thoughts, plans, or attempt; a previous suicide attempt by you or a family member ?? an unusual or allergic reaction to topiramate, other medicines, foods, dyes, or preservatives ?? or trying to get ?? breast-feeding What should I watch for while using this medicine? Visit your doctor or health rn patient care for regular checks on your progress. Do not stop taking this medicine suddenly. This increases the risk of seizures if you are using this medicine to control epilepsy. Wear a medical identification bracelet or chain to say you have epilepsy or seizures, and carry a card that lists all your medicines. This medicine can decrease sweating and increase your body temperature. Watch for signs of sweating or fever, especially in children. Avoid extreme heat, hot baths, and saunas. Be careful about exercising, especially in hot weather. Contact your health care provider right away if you notice afever or decrease in sweating. You should drink plenty of fluids while taking this medicine. If you have had kidney stones in the past, this will help to reduce your chances of forming kidney stones. If you have stomach pain, with nausea or vomiting and yellowing of your eyes or skin, call your doctor immediately. You may get drowsy, dizzy, or have blurred vision. Do not drive, use machinery, or do anything that needs mental alertness until you know how this medicine affects you. To reduce dizziness, do not sit or stand up quickly, especially if you are an older patient. Alcohol can increase drowsiness and dizziness. Avoid alcoholic drinks. If you notice blurred vision, eye pain, or other eye problems, seek medical attention at once for aneye exam. The use of this medicine may increase the chance of suicidal thoughts or actions. Pay special attention to how you are responding while on this medicine. Any worsening of mood, or thoughts of suicide or dying should be reported to your health rn patient care right away. This medicine may increase the chance of developing metabolic acidosis. If left untreated, this can cause kidney stones, bone disease, or slowed growth in children. Symptoms include breathing fast, fatigue, loss of appetite, irregular heartbeat, or loss of consciousness. Call your doctor immediately if you experience any of these side effects. Also, tell your doctor about any surgery you plan on having while taking this medicine since this may increase your risk for metabolic acidosis. control pills may not work properly while you are taking this medicine. Talk to your doctor about using an extra method of control. Women who become while using this medicine may enroll in the [place]iepileptic Drug Registry by calling . This registry collects information about the safetyof antiepileptic drug use during . NOTE:This sheet is a summary. It may not cover all possible information. If you have questions aboutthis medicine, talk to your doctor, pharmacist, or health care provider. Copyright?? 2019 [employer] documented in this encounter Progress Notes Xenia Rae APRN CNP - 10/26/2019 12:30 PM CDT Re: Aarti Mcdonald Date of : 1975 Date of Visit:10/26/2019 OUTPATIENT NEUROLOGY VISIT NOTE Chief Complaint: headache History of Present Illness Aarti Mcdonald is a 43-year-old female [facility] a [facility] evaluation. Headache History: Onset History: Since early 20s and used to manage with Excedrin until 3 years ago started sumatriptan but since last summer. Headaches worsen since summer Current Headache Pattern: Frequency (How many headache days per month?): 3-4 times per week until August and now headaches 1-2 per week lasting for a couple hours if sumatriptan works otherwise up to 12 hours Aura: none Associated Symptoms: nausea, vomiting, light sensitivity and sound sensitivity, fatigue and denies lacrimation or rhinorhea Description of Headache Pain & Location: Almost starts on the right side and craniocervical junction and wraps around and goes to the front/over right sinuses/jaw and predominant to the right side. Pain 8/10 Do headaches interfere with or prevent usual activities or diminish your productivity at home or work? Lives work earlier or calls in Treatments Tried: Sumatriptan 50 mg and repeats within an hour Sertraline has been taking for 10 years Have you needed to utilize the Emergency Room to treat your headache symptoms? no Are Headaches worsening over time? Worsening What makes your headaches better? dark room, quiet room and sleeping headache off What makes your headaches worse or triggers your headaches? Lack of sleep, stress, travel Has IUD Alcohol occasional but does not trigger headache One cup of coffee in the morning and no soda Exercise -yoga Denies history of head or neck trauma, dizziness, vertigo, loss of consciousness, seizure, double vision, blurred vision, hearing difficulty, speech or swallowing difficulty, weakness or numbness in face, arms or legs, urinary or bowel incontinence, coordination problems or gait difficulty, fever or chills. 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 Smoking status: Not on file Substance Use Topics ??? Alcohol use: Not on file reviewed and verified with the patient Allergies Allergen Reactions ??? Penicillins Rash Current Outpatient Medications Medication Sig Dispense Refill ??? sertraline (ZOLOFT) 100 MG tablet Take 150 mg by mouth ??? SUMAtriptan (IMITREX) 50 MG tablet Take 1-2 tablets by mouth every 2 hours if needed for migraine. max dose: 200mg per 24 hours. reviewed and verified with the patient Review of Systems: A 12-point ROS including constitutional, eyes, ENT, respiratory, cardiovascular, gastroenterology, genitourinary, integumentary, musculoskeletal, neurology, hematology and psychiatric were all reviewedwith the patient and completed at the Neuroscience Services Question nary and as mentioned in the HPI. Answers for HPI/ROS submitted by the patient on 10/26/2019 General Symptoms: No Skin Symptoms: No HENT Symptoms: No EYE SYMPTOMS: No HEART SYMPTOMS: No LUNG SYMPTOMS: No INTESTINAL SYMPTOMS: No URINARY SYMPTOMS: No GYNECOLOGIC SYMPTOMS: No BREAST SYMPTOMS: No SKELETAL SYMPTOMS: No BLOOD SYMPTOMS: No NERVOUS SYSTEM SYMPTOMS: No MENTAL HEALTH SYMPTOMS: Yes Nervous or Anxious: Yes Depression: No Trouble sleeping: Yes Trouble thinking or concentrating: No Mood changes: No Panic attacks: No General Exam: BP 124/78 Pulse 64 Resp 16 Wt 67.1 kg (148 lb) SpO2 100% GEN: Awake, NAD; good eye contact, responses appropriately, headache none today HEENT: Head atraumatic/Normocephalic. Scalp normal. Pupils equally round, 4 mm, reactive to light and accommodation, sclera and conjunctiva normal. Fundoscopic examination reveals normal vessels no papilledema. Neck: Easily moveable without resistance Heart: S1/S2 appreciated, RRR, no m/r/g, no carotid bruits Lungs:Lungs are clear to auscultation bilaterally, no wheezes or crackles. Neurological Examination: The patient is alert and oriented times four. Has good attention and concentration. Speech is fluentwithout dysarthria. Cranial nerves: CN I deferred. CN II: Intact and full visual barr to confrontation bilaterally. CN III, IV, : EOM intact. Thereis no nystagmus. Has conjugated gaze. Intact direct and consensual pupillary light reflexes. CN V: Intact and symmetrical to facial sensation in the V1 through V3 bilaterally. CN VII: Intact and symmetrical eyebrow and lid raise and eyelid closure, smiles and frown. CN VIII: Intact to finger rub bilaterally. CN IX and X: The palates elevates symmetrical. The uvula is midline. CN XII: The tongue protrudes midline with no atrophy or fasciculations. Motor exam: The patient has a normal bulk and tone throughout. There is no atrophy, fasciculations, clonus, or abnormal movements appreciated. Strength Exam: 5/5 strength at shoulder abduction, elbow flexion or extension, wrist flexion or extension, finger abduction, consumer recruiter, hip flexion and extension, knee flexion and extension, and dorsiflexion and plantarflexion bilaterally. Sensation is intact to light touch and pinprick throughout. Reflexes are 2+ and symmetrical at biceps, triceps, brachioradialis, patellar, and Achilles. Coordination reveals [id number] with normal speed and accuracy. Station and gait is normal. Has no drift and a negative Romberg. Assessment and Plan: Headaches most likely migrainous in phenotype. On exam she has normal vital signs. Her mental status is normal. Her funduscopic exam is normal. Herneck is supple. Her neurologic exam is normal. The remainder of a complete physical exam is normal. Discussed migraine headache acute and preventive treatment. Patient exercises and does yoga trainingso would avoid BBB for now, avoid TCA -she is on zoloft Plan discussed with the patient: Headache log for frequency and severity and acute medications use Stay hydrated Acute migraine headache treatment -either try sumatriptan 100 mg at headache onset and may repeat in2 hours as needed. Max 200 mg in 24 hours. May take sumatriptan alone or with naproxen. Naproxen 2 tablets (440 mg) every 12 hours as needed and tolerated. May try sumatriptan nasal as needed and may work faster than sumatriptan oral. Sumatriptan nasal spray maximum two doses in 24 hours. If you use sumatriptan nasal and oral at the same day than use 50% less of the recommended oral sumatriptan (max 100 mg in 24 hours vs 200 mg in 24 hours). May try prochlorperazine as needed for nausea and vomiting-may cause feeling of anxiety and drowsiness. We could try ondansetron for nausea as needed -could be taken at work or home due to low drowsiness effect. Headache migraine prevention-a trial of topiramate 25 mg at bedtime for one week, then 50 mg at bedtime Migraine headache prevention-a trial of topiramate 25 mg at bedtime for one week, then 50 mg at bedtime for one week. Side effects- stay hydrated and drink at least 10+glasses of water to decrease risk of kidney stones, may cause tingling in the hands and feet, taste changes, glaucoma, nausea, weight stable or loss, mood changes. Vitamin B2 (riboflvin) 200 mg daily OTC Follow up in 6-8 weeks or sooner if needed Prescriptions for topiramate, sumatriptan, ondansetron and prochlorperazine provided. Correct use and course provided. Expected benefits and typical side effects reviewed. Safety of concomitant medications and interactions reviewed. Patient taught signs and symptoms of adverse reactions and allergies.Patient understands teaching and accepts risks of prescribed medication regimen. I discussed all my recommendation with Aarti Mcdonald. The patient verbalizes understanding and comfortable with the plan. The patient has our clinic phone number to call with any questions or concerns. All of the patient's questions were answered from the best of my current knowledge. Thank you for letting me be a part of the treatment team for Aarti Mcdonald Time spent with pt answering questions, discussing findings, counseling and coordinating care was more than 50% the appointment time, 54 minutes. Xenia Rae APRN, [facility] documented in this encounter Nursing Notes Abelardo Combs - 10/26/2019 12:30 PM CDT Chief Complaint Patient presents with ??? Consult For [facility] NEW HEADACHE Abelardo Combs documented in this encounter Plan of Treatment Not on filedocumented as of this encounter Visit Diagnoses Diagnosis Intractable migraine without aura and wi thout status migrainosus - Primary Migraine without aura, with intractable migraine, so stated, without mention of status migrainosus documented in this encounter Care Teams Airplane Patroller Relationship Specialty Start Date End Date System, Provider Not In PCP - General Clinic 09/12/19 Xenia Rae Nurse Practitioner Nurse Practitioner 09/12/19 STEVEN Cummings [facility] [address] [id number] [address] documented as of this encounter
--- OUTSIDE RECORDS SUMMARY | 2022-05-31 22:41 | XMS_ITS | Clinical Summary ---
:1975 Author Organization [facility] Address [address] [place] [address] Care Team Providers Name Role Phone System, Provider Not In Primary Care Provider Unavailable Xenia Rae APRN CASH CONTROL SPECIALIST Unavailable Allergies Active Allergy Reactions Severity Noted Date Comments Penicillins Rash Low 10/25/2007 Medications Medication Sig Dispensed Refills Start Date End Date Status sertraline (ZOLOFT) Take 150 mg by 0 01/14/2019 Active 100 MG tablet mouth SUMAtriptan (IMITREX) [place] 1 spray in 6 each 6 10/26/2019 Active 20 MG/ACT nasal nostril as needed sprayIndications: for migraine (may Intractable migraine repeat in 2 hours without aura and as needed. Max 40 without status mg in 24 hours) migrainosus ondansetron Take 1 tablet (4 20 tablet 6 10/26/2019 Active (ZOFRAN-ODT) 4 MG ODT mg) by mouth every tabIndications: 8 hours as needed Intractable migraine for nausea without aura and without status migrainosus prochlorperazine Take 1 tablet (5 20 tablet 6 10/26/2019 Active (COMPAZINE) 5 MG mg) by mouth every tabletIndications: 6 hours as needed Intractable migraine for nausea or without aura and vomiting without status migrainosus topiramate (TOPAMAX) Take 25 mg at 60 tablet 6 10/26/2019 Active 25 MG bedtime for one tabletIndications: week, then 50 mg Intractable migraine at bedtime without aura and without status migrainosus SUMAtriptan (IMITREX Inject 0.5 mLs (6 3 kit 6 12/13/2019 Active STATDOSE) 6 MG/0.5ML mg) Subcutaneous pen injector at onset of kitIndications: headache for Intractable migraine migraine (may without aura and repeat in 1 hours without status as needed. Max 2 migrainosus injections in 24 hours) SUMAtriptan (IMITREX) TAKE 1 TABLET BY 12 tablet 9 12/05/2020 Active 100 MG MOUTH AT ONSET OF tabletIndications: MIGRAINE, MAY Intractable migraine REPEAT IN 2 HOURS without aura and NEEDED. MAXIMUM without status DAILY DOSE IS 2 migrainosus Active Problems No known active problems Social History Tobacco Use Types Packs/Day Years Used Date Smoking Tobacco: Never Assessed Sex Assigned at Date Recorded Female 10/26/2019 10:01 AM CDT Last Filed Vital Signs Vital Sign Reading Time Taken Comments Blood Pressure 124/78 10/26/2019 12:17 PM CDT Pulse 64 10/26/2019 12:17 PM CDT Temperature - - Respiratory Rate 16 10/26/2019 12:17 PM CDT Oxygen Saturation 100% 10/26/2019 12:17 PM CDT Inhaled Oxygen Concentration - - Weight 67.1 kg (148 lb) 10/26/2019 12:17 PM CDT Height - - Body Mass Index - - Plan of Treatment Health Maintenance Due Date Last Done Comments ADVANCE CARE PLANNING 1975 ANNUAL REVIEW OF HM ORDERS 1974 CT COLONOGRAPHY 1974 FIT-DNA (Cologuard) 1974 FIT 1974 FLEX SIG 1975 HEPATITIS B IMMUNIZATION (1 1974 of 3 - 3-dose series) MAMMO SCREENING 1974 YEARLY PREVENTIVE VISIT 1974 COVID-19 Vaccine (#1) 06/02/1975 COLONOSCOPY 1984 COLORECTAL CANCER SCREENING 1984 HIV SCREENING 1989 HEPATITIS C SCREENING 1992 PAP 12/02/1995 DTAP/TDAP/TD IMMUNIZATION 12/02/1999 (1 - Tdap) LIPID 12/02/2019 PHQ-2 (once per calendar 08/17/2021 10/26/2019, 10/26/2019 year) INFLUENZA VACCINE (#1) 2022 05/27/2019, 05/07/2016, 05/17/2015, Additional history exists IPV IMMUNIZATION Aged Out No longer eligi ble based on patient 's age to complete this topic MENINGITIS IMMUNIZATION Aged Out No longe r eligible based on patient 's age to complete this topic Pneumococcal Vaccine: Aged Out No longer eligible Pediatrics (0 to 5 Years) based on patient's age and At-Risk Patients (6 to to co mplete this topic 64 Years) Insurance Payer Benefit Plan / Subscriber ID Effective Dates Phone Addre ss Type Group MEDICA MEDICA CHOICE [id number] 2019-Present [phone] [address] [id number] Indemnity [address] [place] [address] Care Teams Dry Mixer Relationship Specialty Start Date End Date System, Provider Not In PCP - General Clinic 09/12/19 Xenia Rae Nurse Practitioner Nurse Practitioner 09/12/19 STEVEN Cummings CASH CONTROL SPECIALIST [address] [facility] [id number] [place] [address]
--- OUTSIDE RECORDS SUMMARY | 2022-05-31 22:41 | XMS_ITS | Encounter Summary ---
:1975 Author Organization [facility] Address [address] [place] [address] Care Team Providers Name Role Phone System, Provider Not In Primary Care Provider Unavailable Xenia Rae APRN SMALL BUSINESS BANKING OFFICER Unavailable Reason for Visit Reason Onset Date Comments Video Visit 12/13/2019 [facility] VIDEO VISIT - 6- 8 WK RETURN Encounter Details Date Type Department Care Team Description 12/13/2019 Virtual Visit [facility] Xenia Rae Intractable migraine [address] [facility] [address] [place], without aura and 3rd Floor CITY MANAGER SMALL BUSINESS BANKING OFFICER without status [place] [address] [place] [address] SE migraino june (Primary [id number] Dx) [phone] [place] [address] Social History Tobacco Use Types Packs/Day Years Used Date Smoking Tobacco: Never Assessed Sex Assigned at Date Recorded Female 10/26/2019 10:01 AM CDT documented as of this encounter Patient Instructions Patient InstructionsXenia Rae APRN SMALL BUSINESS BANKING OFFICER - 12/13/2019 11:30 AM CDT Plan: Headache log in frequency, duration and severity Acute treatment -try sumatriptan nasal first at migraine headache onset and may repeat in 2 hours ifneeded. Max two sprays in 24 hours. Take sumatriptan 100 mg orally if nasal spray were not effectiveand for headache re-treatment in at least 2 hours interval. Max 100 mg in 24 hours for sumatriptan oral if used the same day as sumatriptan nasal. Naproxen 500 mg every 12 hours as needed for acute migraine treatment. May try with either ondansetron or prochlorperazine as needed for nausea and vomiting. Headache prevention-topiramate 50 mg at bedtime and stay hydrated Stay active Follow up in 6-8 weeks or sooner if needed documented in this encounter Progress Notes Xenia Rae APRN CNP - 12/13/2019 11:30 AM CDT Aarti Mdconald is a 44 year old female who is being evaluated via a billable video visit. The patient has been notified of following: This video visit will be conducted via a call between you and your physician/provider. We have found that certain health care needs can be provided without the need for an in-person physical exam. This service lets us provide the care you need with a video conversation. If a prescription is necessarywe can send it directly to your pharmacy. If lab work is needed we can place an order for that and you can then stop by our lab to have the test done at a later time. Video visits are billed at different rates depending on your insurance coverage. Please reach out toyour insurance provider with any questions. If during the course of the call the physician/provider feels a video visit is not appropriate, you will not be charged for this service. Patient has given verbal consent for Video visit? YES How would you like to obtain your AVS? [place] Patient would like the video invitation sent by: Email [email or web address] Will anyone else be joining your video visit? No Video-Visit Details Type of service: Video Visit Video Start Time:11:37am Video End Time: 12:10 PM Originating Location (pt. Location): Home Distant Location (provider location): [facility] Mode of Communication: Video Conference via [facility] OUTPATIENT NEUROLOGY VISIT NOTE Reason for Visit: Headache follow-up. This visit was conducted via synchronous video visit due to the current COVID-19crisis to reduce patient risk. Verbal consent was obtained. Interval History: Aarti Mcdonald is a 44-year-old female presents to the clinic today for headache Initial Headache Clinic visit on 10/26/2019, see note for details. Patient was started on topiramate at her initial visit for headaches prevention. Frequency is definitely less and possibly less stress. Frequency less than one per week and durationof headache and lasting 6-24 hours. Reports that headaches are less severe and may be only 2 were severe since initial visit. Patient reports that she uses sumatriptan nasal spray if tablet does not help and reports that nasalspray takes effect much quickly and does not alleviate pain complete but helps by 66% and takes sumatriptan pill as needed. Patient has been taking topiramate 25 mg at bedtime and did not increase dose as recommended and no side effects reported. Vitamin B2 and takes it daily Patient headaches still appear to be intractable for a prolonged time and severe but less frequent. No new headache symptoms or concerns Patient has been working from home and less of the stress. Headache treatment Plan discussed with the patient: Headache log in frequency, duration and severity Acute treatment -try sumatriptan nasal first at migraine headache onset and may repeat in 2 hours ifneeded. Max two sprays in 24 hours. Take sumatriptan 100 mg orally if nasal spray were not effectiveand for headache re-treatment in at least 2 hours interval. Max 100 mg in 24 hours for sumatriptan oral if used the same day as sumatriptan nasal. Naproxen 500 mg every 12 hours as needed for acute migraine treatment. May try with either ondansetron or prochlorperazine as needed for nausea and vomiting. Headache prevention-topiramate 50 mg at bedtime and stay hydrated Stay active Follow up in 6-8 weeks or sooner if needed Past Medical History reviewed Social History Tobacco Use ??? Smoking status: Not on file Substance Use Topics ??? Alcohol use: Not on file reviewed and verified with the patient Allergies Allergen Reactions ??? Penicillins Rash Current Outpatient Medications Medication Sig Dispense Refill ??? ondansetron (ZOFRAN-ODT) 4 MG ODT tab Take 1 tablet (4 mg) by mouth every 8 hours as needed for nausea 20 tablet 6 ??? prochlorperazine (COMPAZINE) 5 MG tablet Take 1 tablet (5 mg) by mouth every 6 hours as needed for nausea or vomiting 20 tablet 6 ??? sertraline (ZOLOFT) 100 MG tablet Take 150 mg by mouth ??? SUMAtriptan (IMITREX) 100 MG tablet Take 1 tablet (100 mg) by mouth at onset of headache for migraine (may repeat in 2 hours as needed. Max 2 doses in 24 hours) 12 tablet 6 ??? SUMAtriptan (IMITREX) 20 MG/ACT nasal spray [place] 1 spray in nostril as needed for migraine (mayrepeat in 2 hours as needed. Max 40 mg in 24 hours) 6 each 6 ??? SUMAtriptan (IMITREX) 50 MG tablet Take 1-2 tablets by mouth every 2 hours if needed for migraine. max dose: 200mg per 24 hours. ??? topiramate (TOPAMAX) 25 MG tablet Take 25 mg at bedtime for one week, then 50 mg at bedtime 60 tablet 6 reviewed and verified with the patient Review of Systems: A 10-point ROS including constitutional, eyes, respiratory, cardiovascular, gastroenterology, genitourinary, integumentary, musculoskeletal, neurology and psychiatric were reviewed and as mentioned inthe interval history. General Exam: There were no vitals taken for this visit. GEN: Awake, NAD; good eye contact, responses appropriately, Speech is fluent without dysarthria. EOMintact. Face is symmetrical. Intact and symmetrical eyebrow and lid raise and eyelid closure, smiles. Hearing Intact to conversation speech. Assessment and Plan: See Interval History for our discussion and plan Prescription for sumatriptan provided. Correct use and course provided. Expected benefits and typical side effects reviewed. Safety of concomitant medications and interactions reviewed. Patient taught signs and symptoms of adverse reactions and allergies. Patient understands teaching and accepts risksof prescribed medication regimen. I discussed all my recommendation with Aarti Mcdonald. The patient verbalizes understanding and comfortable with the plan. The patient has our clinic phone number to call with any questions or concerns. All of the patient's questions were answered from the best of my current knowledge. Time spent with pt answering questions, discussing findings, counseling and coordinating care was more than 50% the appointment time, 26 minutes. Xenia Rae APRN, [facility] documented in this encounter Plan of Treatment Not on filedocumented as of this encounter Visit Diagnoses Diagnosis Intractable migraine without aura and wi thout status migrainosus - Primary Migraine without aura, with intractable migraine, so stated, without mention of status migrainosus documented in this encounter Care Teams Senior Investigator Relationship Specialty Start Date End Date System, Provider Not In PCP - General Clinic 09/12/19 Xenia Rae Nurse Practitioner Nurse Practitioner 09/12/19 STEVEN Cummings [id number] [place] [address] documented as of this encounter
--- OUTSIDE RECORDS SUMMARY | 2022-05-31 22:41 | XMS_ITS ---
:1975 Author Care Team Providers Name Role Phone SILVER PALOMINO Primary Care Provider [phone] Allergies Code Code System Name Reaction Severity Status Onset Penicillins Rash Moderate Active 02/14/19 88 Medications Name Status Start Date Stop Date ? ? ketorolac 10 mg tablet Active ? Not avail able ondansetron 4 mg disintegrating tablet Active ? Not available prochlorperazine maleate 5 mg tablet Active ? Not available sertraline 100 mg tablet Active ? Not nanci ilable sumatriptan 100 mg tablet Active ? Not av ailable sumatriptan 20 mg/actuation nasal spray Active ? Not available sumatriptan 50 mg tablet Active ? Not nanci ilable sumatriptan 6 mg/0.5 mL subcutaneous pen injector Active ? Not available topiramate 25 mg tablet Active ? Not avai lable Problems Name Status Onset Date Source ? Migraine Active 01/02/2020 ? 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 Myofascial Pain Active 01/02/2020 ? Screening for Disorder Active 01/02/2020 ? Limited Opening of Mandible Active 01/02/2020 ? Otalgia of Right Ear Active 01/02/2020 ? Procedures Date Name Performed by ? 05/01/2007 Dilation and Curettage Information not a vailable ? [place] Teeth Extraction Information not available Results Lab Results Date Name Specimen Result Interpretation Description Value Range Status Address ? ? Oral Appliance ? Type of maxillary ? ? [place]: [address] Appliance stabilization [address] , [place] Past Encounters None recorded. Social History Tobacco Smoking Status Never Smoker Vaccine List Vaccine Type influenza, seasonal, injectable 05/28/2019 Plan of Care Reminders Provider Appointments None recorded. ? ? Lab None recorded. ? ? Referral None recorded. ? ? Procedures None recorded. ? ? Surgeries None recorded. ? ? Imaging None recorded. ? ? Vitals 01/16/2020 03:00PM SPLINT INSERT Height Weight BMI Blood Pressure 5 ft 7 in 145 lbs 22.7 kg/m2 121/78 mm[Hg] 01/02/2020 09:00AM NEW PATIENT 60 Height Weight BMI Blood Pressure 5 ft 7 in 145 lbs 22.7 kg/m2 107/75 mm[Hg]
--- OUTSIDE RECORDS SUMMARY | 2022-05-31 22:41 | XMS_ITS | Encounter Summary ---
:1975 Author Organization [place] Address [address] [place] [id number] Care Team Providers Name Role Phone Unavailable Primary Care Provider Unavailable Encounter Details Date Type Department Care Team Description 05/10/2006 Delivery Summary Steven Fermin MD (Ms Sql Server Developer) BILLING CONTROL CLERK [address] [address] [place], [place] [id number] (Wo rk) Social History Tobacco Use Types Packs/Day Years Used Date Smoking Tobacco: Never Assessed Sex Assigned at Date Recorded Female 10/26/2019 10:01 AM CDT documented as of this encounter Progress Notes Steven Fermin - 05/28/2006 11:38 AM CDT FINAL The patient is a 30-year-old 2, para 1 female who presents at 38 weeks gestation in spontaneous labor. Rupture of membranes reveals thinly meconium- stained fluid. She did receive an epidural for pain control. Upon reaching complete dilation, she pushed for approximately 10 minutes for a spontaneous vaginal delivery over an intact perineum of a 7 pound 12 ounce male with Apgars 8 and 9. Thinly stained meconium fluid was aspirated with DeLee suction. The placenta was delivered spontaneously and intact. A second-degree midline perineal laceration was repaired in layers with 3-0 Vicryl suture. Estimated blood loss was less than 200 cc. Both and mother did well following delivery. Electronically signed on 05/28/2006 11:37 by STEVEN FERMIN MD MT: [id number] Name: AARON MCDONALD MRN: [id number] Account: [id number] : 1975 Delivery Date: 05/10/2006 Document: [id number] documented in this encounter Plan of Treatment Not on filedocumented as of this encounter Visit Diagnoses Not on filedocumented in this encounter
--- OUTSIDE RECORDS SUMMARY | 2022-05-31 22:41 | XMS_ITS | Encounter Summary ---
:1975 Author Organization [place] Address [address] [place] [id number] Care Team Providers Name Role Phone Unavailable Primary Care Provider Unavailable Encounter Details Date Type Department Care Team Description 04/26/2007 Historic Results INTERFACED REPORT Anai Powell MD EVALUATION ANALYST SPECIALIS [address] [facility] [address] [place] [address] (Wo rk) Social History Tobacco Use Types Packs/Day Years Used Date Smoking Tobacco: Never Assessed Sex Assigned at Date Recorded Female 10/26/2019 10:01 AM CDT documented as of this encounter Plan of Treatment Not on filedocumented as of this encounter Procedures Procedure Name Priority Date/Time Associated Diagnosis Comme nts HEMOGLOBIN Routine 04/26/2007 7:40 AM Results f or this CDT procedure are i n the results section . HISTOPATHOLOGY Routine 04/26/2007 12:00 AM Result s for this CDT procedure are i n the results section . documented in this encounter Results Hemoglobin (04/26/2007 7:40 AM CDT) P athologist Signature Hemoglobin 13.6 11.7 - 15.7 MISYS g/dL Specimen Anatomical Collection Method Collection Time Receive d Time (Source) Location / / Volume Laterality 04/26/2007 7:40 AM 7 7:53 CDT AM CDT Kimberley Powell MD LAB - BLOOD ORDERABLES Performing Organization Address City/State/ZIP Code Phon e Number MISYS Histopathology (04/26/2007 12:00 AM CDT) Component Value Ref Test Analysis Performed At Patholo gist Range Method Time Signature Copath Report CASE: [id number] ^ [facility] Patient Name: AARON MCDONALD MR#: [id number] Specimen #: [id number] Collected: 04/26/2007 Received: 04/26/2007 Reported: 04/27/2007 16:37 Ordering Phy(s): KIMBERLEY POWELL SPECIMEN(S): Products of conception FINALDIAGNOSIS: Uterine contents - Degenerative decidua and chorionic villi (products of conception). Electronically signed out by: Tashi Justin M.D. CLINICAL HISTORY: Missed . ??LMP 02/07/07. GROSS: The specimen, labeled products of conception, consists of about 80 cc in aggregate of fleshy and membranous tissue fragments. ??Re presentative sections are embedded in three cassettes. ??Jemal MICROSCOPIC: Sections show abundant decidual tissue with degenerative john ngesand hemorrhage and inflammation. ??There is also some gestationa l type endometrium. ??Also, there are intermixed immature large cho rionic villi showing some myxoid and hydropic degenerative changes. ??In a few areas, this is more predominant as placental villi with fairly norm al trophoblastic appearance. ??No embryo tissue is seen. Jemal DT/04-27-07 TESTING LAB LOCATION: [address] ??[id number] COLLECTION SITE: Client: [facility] Location: SDS (R) Specimen (Source) Anatomical Collection Method Collection Time Re ceived Time Location / / Volume Laterality 04/26/2007 04/27/2007 4:38 PM CDT Kimberley Powell MD LAB - [facility] SPECIAL DIAG OR DERABLES Performing Organization Address City/State/ZIP Code Phon e Number COP[facility] documented in this encounter Visit Diagnoses Not on filedocumented in this encounter
[2022-05-31] MEDS: ONDANSETRON 2 MG/ML inj 4 MG IVP (22:50)
[2022-05-31] MEDS: KETOROLAC 30 MG/ML inj IVP (22:55)
[2022-05-31] MEDS: 0.9 % SODIUM CHLORIDE 1000 ml 1,000 ML IV (22:55)
[2022-05-31] MEDS: MORPHINE 4 MG/ML INJ IVP (23:00)
[2022-05-31 23:23] VITALS: O2SAT 98
--- NOTE | 2022-05-31 23:24 | ED_ITS ---
HPI - Abdominal Pain General Chief Complaint: Abdominal Pain Stated Complaint: VOMITING,ABDOMINAL PAIN Time Seen by Provider: 05/31/22 22:18 History of Present Illness HPI narrative: Generally healthy 46-year-old woman presenting with sudden onset of severe epigastric pain that around 2 hours prior to arrival in the emergency department. I am finally able to evaluate her about in 3 hours after onset. She was in usual state of health when this occurred. Had not yet eaten supper. Does not have any particular food intolerance released any causing tremendous pain although tries to avoid lactose I believe. Not have a diagnosis of IBS. Has not had any abdominal surgeries. The pain is sharp and cramping. She has not been experiencing constipation or diarrhea. She can feel something in her back but thinks that might be related to just muscle tension. She is not having any symptoms radiating into legs of numbness or tingling or any weakness. Further questioning does reveal a family history of gallbladder disease and nephrolithiasis, the latter in her father. Otherwise Ms. Mcdoanld did have a recent diagnosis of COVID it has now been about 9 days since 1st day of symptoms. She had not been having any shortness of breath in particular point. Related Data Home Medications Medication Instructions Recorded Confirmed Fish Oil DAILY 05/31/22 sertraline 100 mg tablet mg 05/31/22 sumatriptan succinate 50 mg tablet mg PO 05/31/22 sumatriptan succinate 6 mg/0.5 mL mg subcut 05/31/22 subcutaneous pen injector Allergies Allergy/AdvReac Type Severity Reaction Status Date / Time Penicillins Allergy rash Verified 05/31/22 21:44 Review of Systems Status of ROS Reports: 10 or more systems reviewed and unremarkable except as noted in History and below [facility] Social History Smoking Status: Never smoker How often do you have a drink containing alcohol: 2-3 times a week AUDIT-C Alcohol total score: 3 Non-prescribed substance use: denies use Exam Narrative: Exam Narrative: Is trembling and tense in apparent pain. Appears to be trying to be calm. Emesis bag nearby. Carefully casually groomed. Skin is warm and dry Oropharynx is moist. Lungs are clear. Cardiovascular with regular rate and rhythm. Abdomen absent bowel sounds. Mild to moderately tender in the epigastrium and just right of midline under the ribs as well. Trace and equal femoral pulses. No masses are appreciated. There is no flank pain. Though she is anticipating some tenderness to palpation right middle back. Moving all extremities without difficulty. There is no edema. Const: Vital Signs, click to edit/add: Vital Signs - 24 hr 05/31/22 21:40 05/31/22 23:23 06/01/22 01:40 Temperature 97.5 F L Pulse Rate [Left P ulse Oximeter] 66 66 Respiratory Rate 16 16 Blood Pressure [Ri ght Upper Arm] 157/83 H 131/78 Pulse Oximetry 100 98 99 Oxygen Delivery Me thod Room Air Room Air Documenting provider has reviewed patient's vital signs: yes Course Course Hospital Course: I have ordered for IV normal saline, morphine, ketorolac and Zofran. Reevaluation(s) Reevaluation #1: Was very patient with our delay in busy emergency department today in spite of clear discomfort. Pain and now less than 2, appears very comfortable, after morphine with Toradol effect still pending. Vital Signs Vital signs: Initial Vital Signs Temperature 97.5 F L 05/31/22 21:40 Temperature Source Temporal Artery Scan 05/31/22 21:40 Pulse Rate 66 05/31/22 21:40 Respiratory Rate 16 05/31/22 21:40 Blood Pressure 157/83 H 05/31/22 21:40 Blood Pressure Mean 107 05/31/22 21:40 Blood Pressure Position Sitting 05/31/22 21:40 Pulse Oximetry 100 05/31/22 21:40 Oxygen Delivery Method 05/31/22 21:40 Vital Signs Temperature 97.5 F L 05/31/22 21:40 Pulse Rate 66 05/31/22 21:40 Respiratory Rate 16 05/31/22 21:40 Blood Pressure 157/83 H 05/31/22 21:40 Pulse Oximetry 100 05/31/22 21:40 Oxygen Delivery Method 05/31/22 21:40 Temperature 97.5 F L 05/31/22 21:40 Pulse Rate 66 06/01/22 01:40 Respiratory Rate 16 06/01/22 01:40 Blood Pressure 131/78 06/01/22 01:40 Pulse Oximetry 99 06/01/22 01:40 Oxygen Delivery Method 06/01/22 01:40 MDM - Abdominal Pain MDM Narrative Medical decision making narrative: Abrupt onset of pain in this location I suspect more biliary colic though differential also involves vascular disruption, esophageal spasm perhaps in the setting of dyspepsia, nephrolithiasis, cardiovascular issue. Lab Data Attestation: I reviewed the patient's lab results. Labs: Lab Results 05/31/22 05/31/22 05/31/22 Range/Units 22:50 22:50 22:50 WBC 18.91 H (4.50-11.00) K/uL RBC 4.83 (4.00-5.20) m/uL Hgb 14.7 (12.0-16.0) gm/dL Hct 42.7 (33.0-51.0) % MCV 88 (80-100) fL MCH 30 (26-34) pg MCHC 34 (32-36) gm/dL RDW Coeff of Nirmala 12.4 (11.5-15.5) % Plt Count 275 (140-440) K/uL Neut % (Auto) 89.3 H (42.0-72.0) % Lymph % (Auto) 6.2 L (20-44) % [place] % (Auto) 3.3 (0.0-11.0) % Eos % (Auto) 0.2 (0.0-7.0) % Baso % (Auto) 0.2 (0.0-3.0) % Neut # (Auto) 16.90 H (1.7-7.0) K/uL Lymph # (Auto) 1.20 (0.90-2.90) K/uL [place] # (Auto) 0.60 (0.00-0.90) K/UL Eos # (Auto) 0.00 (0.00-0.50) K/uL Baso # (Auto) 0.00 (0.00-0.30) K/uL Abs Immat Gran (auto) 0.15 (0.00-0.30) K/uL D-Dimer Quant (PE/DVT) 0.41 (0.00-0.50) ug/ml Sodium 136 (135-149) mmol/L Potassium 3.6 (3.6-5.1) mmol/L Chloride 101 (96-114) mmol/L Carbon Dioxide 22 (20-32) mmol/L BUN 9 (5-24) mg/dL Creatinine 0.6 (0.5-1.5) mg/dL Estimated Creat Clear 108.51 Estimated GFR 111 ml/min Glucose 117 H (60-115) mg/dL Calcium 10.0 (8.4-10.6) mg/dL Total Bilirubin (0.1-1.5) mg/dL Direct Bilirubin (0.0-0.5) mg/dL AST (12-35) U/L ALT (4-35) U/L Alkaline Phosphatase (40-150) U/L C-Reactive Protein < 0.5 L (0.5-1.0) mg/dL Total Protein (6.0-8.3) g/dL Albumin (3.3-5.0) g/dL Lipase (23-300) U/L Urine Color (Yellow) Urine Appearance (Clear) Urine pH (5.0-8.5) Ur Specific Louin (1.000-1.030) Urine Protein (Negative) Urine Glucose (UA) (Negative) Urine Ketones (Negative) Urine Blood (Negative) Urine Nitrite (Negative) Urine Bilirubin (Negative) Urine Urobilinogen (0.2-1.0) Ur Leukocyte Esterase (Negative) Urine RBC (0-2) Urine WBC (0-5) Ur Squamous Epith Cells (None-Few) Urine Bacteria (None) 05/31/22 06/01/22 Range/Units 22:50 01:00 WBC (4.50-11.00) K/uL RBC (4.00-5.20) m/uL Hgb (12.0-16.0) gm/dL Hct (33.0-51.0) % MCV (80-100) fL MCH (26-34) pg MCHC (32-36) gm/dL RDW Coeff of Nirmala (11.5-15.5) % Plt Count (140-440) K/uL Neut % (Auto) (42.0-72.0) % Lymph % (Auto) (20-44) % [place] % (Auto) (0.0-11.0) % Eos % (Auto) (0.0-7.0) % Baso % (Auto) (0.0-3.0) % Neut # (Auto) (1.7-7.0) K/uL Lymph # (Auto) (0.90-2.90) K/uL [place] # (Auto) (0.00-0.90) K/UL Eos # (Auto) (0.00-0.50) K/uL Baso # (Auto) (0.00-0.30) K/uL Abs Immat Gran (auto) (0.00-0.30) K/uL D-Dimer Quant (PE/DVT) (0.00-0.50) ug/ml Sodium (135-149) mmol/L Potassium (3.6-5.1) mmol/L Chloride (96-114) mmol/L Carbon Dioxide (20-32) mmol/L BUN (5-24) mg/dL Creatinine (0.5-1.5) mg/dL Estimated Creat Clear Estimated GFR ml/min Glucose (60-115) mg/dL Calcium (8.4-10.6) mg/dL Total Bilirubin 0.5 (0.1-1.5) mg/dL Direct Bilirubin 0.1 (0.0-0.5) mg/dL AST 25 (12-35) U/L ALT 20 (4-35) U/L Alkaline Phosphatase 86 (40-150) U/L C-Reactive Protein (0.5-1.0) mg/dL Total Protein 8.5 H (6.0-8.3) g/dL Albumin 5.0 (3.3-5.0) g/dL Lipase 46 (23-300) U/L Urine Color Yellow (Yellow) Urine Appearance Clear (Clear) Urine pH 7.5 (5.0-8.5) Ur Specific Louin 1.010 (1.000-1.030) Urine Protein Negative (Negative) Urine Glucose (UA) Negative (Negative) Urine Ketones Negative (Negative) Urine Blood Negative (Negative) Urine Nitrite Negative (Negative) Urine Bilirubin Negative (Negative) Urine Urobilinogen 0.2 (0.2-1.0) Ur Leukocyte Esterase Negative (Negative) Urine RBC 0-2 (0-2) Urine WBC 0-2 (0-5) Ur Squamous Epith Cells None (None-Few) Urine Bacteria None (None) Discharge Plan Discharge Clinical Impression: Acute epigastric pain Patient Disposition: Home w/ Parent or Adult Condition: Improved Additional Instructions: Focus on hydration --not just the stuff from [place]. If recurs can try your medication and follow-up if not improved in an hour and a half. So return for persistent recurrence of pain, repeated vomiting, associated fever. I will call you if there is more information upon radiology over-read of your ultrasound. I still wonder if there was some biliary colic. Cristy and Julio from [employer] Prescriptions: No Action sertraline 100 mg tablet sumatriptan succinate 50 mg tablet PO Label Comments: TAKE 1-2 TABLETS BY MOUTH EVERY 2 HOURS IF NEEDED FOR MIGRAINE. MAXIMUM DOSE OF 4 TABLETS PER DAY. sumatriptan succinate 6 mg/0.5 mL pen injector SUBCUT Fish Oil DAILY Follow Up/Referrals: Anamaria Aguirre PA [Primary Care Provider] - Stand Alone Forms: [employer] Info Instructions
[2022-05-31 23:32] LABS: Chloride* 101 mmol/L (96-114); Potassium* 3.6 mmol/L (3.6-5.1); Sodium* 136 mmol/L (135-149)
[2022-05-31 23:35] LABS: Carbon Dioxide* 22 mmol/L (20-32); Creatinine* 0.6 mg/dL (0.5-1.5); Est. Creatinine Clearance* 108.51; Estimated Glomerular Filt Rate 111 ml/min
[2022-05-31 23:36] LABS: Aspartate Amino Transferase* 25 U/L (12-35); Bilirubin Direct* 0.1 mg/dL (0.0-0.5); Bilirubin Total* 0.5 mg/dL (0.1-1.5); Blood Urea Nitrogen* 9 mg/dL (5-24); Glucose* 117 mg/dL (60-115); Total Protein* 8.5 g/dL (6.0-8.3)
[2022-05-31 23:37] LABS: Alanine Aminotransferase* 20 U/L (4-35); Alkaline Phosphatase* 86 U/L (40-150); Lipase* 46 U/L (23-300)
[2022-05-31 23:43] LABS: C Reactive Protein* < 0.5 mg/dL (0.5-1.0)
[2022-05-31 23:44] LABS: Basophils Percent Auto 0.2 % (0.0-3.0); Eosinophils Percent Auto 0.2 % (0.0-7.0); Hematocrit 42.7 % (33.0-51.0); Hemoglobin* 14.7 gm/dL (12.0-16.0); Immature Granulocytes Abs Auto 0.15 K/uL (0.00-0.30); Lymphocytes Percent Auto 6.2 % (20-44); Mean Corpuscular HGB Conc 34 gm/dL (32-36); Mean Corpuscular Hemoglobin 30 pg (26-34); Mean Corpuscular Volume 88 fL (80-100); Monocytes Percent Auto 3.3 % (0.0-11.0); Neutrophils Percent Auto 89.3 % (42.0-72.0); Platelet Count* 275 K/uL (140-440); RDW Coefficient of Variation % 12.4 % (11.5-15.5); Red Blood Count 4.83 m/uL (4.00-5.20); White Blood Count* 18.91 K/uL (4.50-11.00)
[2022-05-31 23:47] LABS: Slide Review Reflex No
--- NOTE | 2022-06-01 | CRLHL7_ITS ---
For Patients: As a result of the Century Cures Act, medical imaging exams and procedure reports are released immediately into your electronic medical record. You may view this report before your referring provider. If you have questions, please contact your health care provider. INDICATION: SUDDEN AND SEVERE EPIGASTRIC PAIN COMPARISON: none TECHNIQUE: Real time travis scale imaging and color Doppler analysis was performed of the right upper quadrant. FINDINGS: The patient`s liver is of normal size and has uniform echogenicity. There is a normal appearance of the hepatic IVC and proximal abdominal aorta. There is no evidence of ascites. The gallbladder is of normal size and there is no evidence of intraluminal stones or sludge. The gallbladder wall measures 1 mm in thickness. The common bile duct is of normal size and measures 3 mm in diameter at the level of the samanta hepatis. The pancreas appears normal. There is no evidence of a stone or hydronephrosis within the right kidney. The right kidney measures 10.6 cm in length. IMPRESSION: Normal right upper quadrant ultrasound. Dictated by Arvin Joseph MD @ 06/02/2022 9:09:33 AM (Electronically Signed)
[2022-06-01 00:02] LABS: D Dimer Quantitative* 0.41 ug/ml (0.00-0.50)
[2022-06-01 01:05] LABS: Appearance Urine Clear (Clear); Bilirubin Urine Negative (Negative); Blood Urine Negative (Negative); Color Urine Yellow (Yellow); Glucose Urine Negative (Negative); Ketones Urine Negative (Negative); Leukocyte Esterase Urine Negative (Negative); Nitrite Urine Negative (Negative); Protein Urine Negative (Negative); Urobilinogen Urine 0.2 (0.2-1.0); pH Urine 7.5 (5.0-8.5)
[2022-06-01 01:14] LABS: RBC Urine 0-2 (0-2); WBC Urine 0-2 (0-5)
[2022-06-01 01:40] VITALS: BP 131/78; PULSE 66; RESP 16; O2SAT 99
== END 2022-06-01 03:05 | disposition home or self-care (01) ==
PROVIDERS: Emergency Provider Family Medicine; PCP Physician Assistant
DX: R10.13 Epigastric pain (principal)
CPT/HCPCS: 36415; 76705; 80048; 80076; 81001; 83690; 85025; 85379; 86140; 94761; 96374; 96375; 99283; 99284; J1885; J2270; J2405; J7030

== ENCOUNTER 2022-07-01 09:41 | Day surgery (SDC) | payer OTHER, SELFPAY ==
[2022-07-01] VITALS (15 sets, daily range): BP systolic 115–142; BP diastolic 61–93; PULSE 52–98; RESP 16–18; TEMP 36.4–36.6; O2SAT 98–100; BMI 23.8
[2022-07-01] MEDS: SODIUM CHLORIDE 0.9 % (FLUSH) 10 ML SYRINGE IVF (10:00)
[2022-07-01] MEDS: LACTATED RINGERS 1000 ML 1,000 ML 100 ML IV ×2 (10:00→13:15)
[2022-07-01 10:03] LABS: HCG Qualitative* Negative (Negative)
--- NOTE | 2022-07-01 10:09 | SUR.PREOP ---
VISUALIZED PATIENT'S HOME COVID TEST, RESULTS NEGATIVE.
[2022-07-01] MEDS: LACTATED RINGERS 1000 ML 1,000 ML 75 ML IV (10:30)
[2022-07-01] MEDS: CEFAZOLIN 2 GM INJ IVP (11:39)
[2022-07-01] MEDS: BUPIVACAINE 0.25% 30 ML INJECTION (11:54)
--- NOTE | 2022-07-01 12:33 | P.GSOP_ITS ---
Operative Note Date of procedure: 07/01/22 Type of Procedure: 1. Laparoscopic cholecystectomy. Procedure Description: After discussing the risks and benefits of the procedure, the patient signed informed consent.? The operative site was marked and the patient was brought to the operating room and placed on the operating table in supine position.? Care was taken to pad the patient's pressure points.?? The patient was then intubated by anesthesia.?? The operative site was then prepped and draped in the usual sterile fashion.? A time-out was then performed. A 5-mm laparoscopy port was placed in the left upper quadrant guided by a 5-mm laparoscope placed into a translucent trochar.~ Passage through the layers of the abdominal wall was visualized with the laparoscope.~ A pneumoperitoneum was established. A 0-degree 5-mm laparoscope was advanced into the abdomen. The abdomen was briefly surveyed, and no adhesions were noted. A 10-mm port were placed infraumbilically and two more 5 mm ports were placed on the right under direct visualization by laparoscope. The camera was then changed to 10 mm 30- degree scope and placed into the abdomen through the 10 mm port. The left upper quadrant port entrance was examined and no injury to intra-abdominal organs was identified. The gallbladder was identified, the fundus grasped and retracted cephalad. Omentum was adherent to the gallbladder wall. Those adhesions were taken down with hook cautery. The infundibulum was grasped and retracted laterally, exposing the peritoneum overlying the triangle of Calot. This was then divided and exposed in a blunt fashion and with hook cautery. There was no evidence of acute inflammation. Common bile duct was not identified but care was taken not to injure it. The cystic duct was clearly identified and bluntly dissected circumferentially. Cystic artery was identified and tissues around it were dissected off. A normal appearing node of Calot was noted. This was retracted proximally. A single vascular clip was placed on the node of Calot to prevent bleeding. The cystic artery and the cystic duct were clearly going into the gallbladder. The cystic duct was then doubly ligated with surgical clips on the patient's side and singly clipped on the gallbladder side and divided. The cystic artery was then similarly ligated with clips and divided as well. The gallbladder was dissected from the liver bed in retrograde fashion using hookcautery. The gallbladder was placed into an Endo-Catch bag and removed through the infraumbilical incision. Surgical site was examined for bleeding. No bleeding was seen in the surgical field. The fascia of the infraumbilical incision was then closed with 0-0 vicryl using Christiano Joaquín needle under direct visualization. Pneumoperitoneum was completely reduced after viewing removal of the trocars under direct vision. The skin was then closed with 4-0 monocryl and steristrips were applied. Instrument, sponge, and needle counts were correct at closure and at the conclusion of the case. The patient was transferred to PACU in stable condition. ? Findings: Omental adhesions to the anterior gallbladder wall. Those were taken down with cautery. No acute inflammation was noted. Anesthesia: GETA Surgeon: Denita Dodd MD Estimated blood loss (mL): 5 Condition: stable Disposition: PACU
--- NOTE | 2022-07-01 12:42 | W.ANESCHARGE ---
Anesthesia Charges Start Date/Time Anesthesia Start Date: 07/01/22 Anesthesia Start Time: 11:29 Stop Date/Time Anesthesia Stop Date: 07/01/22 Anesthesia Stop Time: 12:37 Summary Emergency: No
[2022-07-01] MEDS: fentaNYL 100 MCG/2 ML inj 50 MCG IVP ×2 (12:43→12:47)
[2022-07-01] MEDS: MEPERIDINE 25 MG/ML INJ 12.5 MG IVP (12:48)
[2022-07-01] MEDS: ONDANSETRON 2 MG/ML inj 4 MG IVP (13:02)
[2022-07-01] MEDS: HYDROmorphone 0.5 mg/0.5 ml inj IVP (13:03)
--- NOTE | 2022-07-01 13:04 | SUR.PHASEI ---
pt having significant pain crying and moaning and restless from side to side abdomen soft site look good give pain meds and monitor closely
--- NOTE | 2022-07-01 13:21 | W.ANESCHARGE ---
Anesthesia Charges Start Date/Time Anesthesia Start Date: 07/01/22 Anesthesia Start Time: 11:29 Stop Date/Time Anesthesia Stop Date: 07/01/22 Anesthesia Stop Time: 12:37 Summary Emergency: No
[2022-07-01] MEDS: METOCLOPRAMIDE HCL 5 MG/ML INJ 10 MG IVP (14:17)
[2022-07-01] MEDS: HYDROCODONE-ACETAMIN 5-325 MG 1 TAB PO (14:30)
== END 2022-07-01 15:18 | disposition home or self-care (01) ==
PROVIDERS: Anesthesiology; PCP Physician Assistant; Visit Provider Surgery
PROC: 0FT44ZZ Resection of Gallbladder, Percutaneous Endoscopic Approach (ICD-10-PCS; CPT 47562; principal; 2022-07-01 11:00)
DX: K81.1 Chronic cholecystitis (principal)
CPT/HCPCS: 47562; 00790; 84703; 88304; A9270; J0330; J0690; J1100; J1170; J2175; J2250; J2405; J2704; J2710; J2765; J3010; J3490; J7120

== ENCOUNTER 2023-11-03 15:45 | Outpatient (RCR) | payer BC, SELFPAY | END 2024-03-02 23:59 | disposition home or self-care (01) | PROVIDERS: PCP Physician Assistant; Visit Provider Orthopaedic Surgery Foot and Ankle Surgery | DX: M20.21 Hallux rigidus, right foot (principal); M25.371 Other instability, right ankle; Z51.89 Encounter for other specified aftercare | CPT/HCPCS: 97110; 97112; 97116; 97140; 97161 ==